=== PATIENT | female | born 1950 | race Caucasian/White ===

== ENCOUNTER 2017-08-17 10:11 | Outpatient (CLI) | payer MEDICARE | END 2017-08-17 10:12 | disposition home or self-care (01) | LOC: BICMAMMO 10:11 | PROVIDERS: ATTEND Family Medicine | DX: Z12.31 Encounter for screening mammogram for malignant neoplasm of breast (principal); R92.1 Mammographic calcification found on diagnostic imaging of breast | CPT/HCPCS: 77063; 77067 ==

== ENCOUNTER 2020-05-20 15:37 | Outpatient (CLI) | payer MEDICARE ==
--- NOTE | 2020-05-20 16:35 | RAD ---
CHEST TWO VIEW: 05/20/20 HISTORY: Shortness of breath. COMPARISON: Chest radiograph 2006. FINDINGS: There is likely interposition of the bowel between the right hemidiaphragm and the liver, much less l ikely intraperitoneal gas. The heart size is enlarged. Pulmonary arteries are distended. Low grade pu lmonary venous congestion. IMPRESSION: 1. Cardiomegaly with mild pulmonary venous congestion. 2. Likely interposition of bowel between the right hemidiaphragm and the liver, much less likely free intraperitoneal gas. Clinical correlation advised. POS: [facility]
== END 2020-05-20 15:38 | disposition home or self-care (01) ==
LOC: BICRAD 15:37
PROVIDERS: ATTEND Family Medicine
DX: R06.02 Shortness of breath (principal); R06.01 Orthopnea; R63.5 Abnormal weight gain; I51.7 Cardiomegaly; I87.8 Other specified disorders of veins
CPT/HCPCS: 71046; 82024; 82533; 83880; 84443

== ENCOUNTER 2020-06-01 10:37 | Inpatient (IN) | payer MEDICARE ==
[2020-06-01] MEDS ORDERED: Digoxin 0.5 MG/2 ML AMP ONE (11:15)
[2020-06-01] MEDS ORDERED: Aspirin Chewable 81 MG TAB ONE (11:15)
[2020-06-01] MEDS ORDERED: Magnesium 2 GM/50 ML BAG (IN WATER) ONE (11:15)
[2020-06-01] MEDS ORDERED: Furosemide 40 MG/4 ML VIAL ONE (11:15)
[2020-06-01] MEDS ORDERED: Diltiazem 125 MG/25 ML ONE (11:15)
[2020-06-01 11:50] LABS: #Basophils 0.1 thou/uL (0.0-0.2); #Eosinphils 0.1 thou/uL (0.0-0.7); #Lymphocytes 0.9 thou/uL (1.20-3.40); #Monocytes 0.5 thou/uL (0.11-0.59); #Neutrophils 3.1 thou/uL (1.40-6.50); %Basophils 1.6 % (0.0-1.0); %Eosinophils 1.4 % (0.0-10.0); %Monocytes 10.2 % (0.0-10.0); %Neutrophils 67.9 % (42.0-75.0); Hemoglobin 13.1 g/dL (12.0-16.0); Mean Corpuscular HGB CONC 33.6 g/dL (32.0-36.0); Mean Corpuscular Hemoglobin 30.8 pg (27.0-31.0); Mean Corpuscular Volume 91.9 fL (78.0-98.0); Platelet Count 191 thou/uL (130-400); Red Blood Cell (RBC) Count 4.24 mill/uL (4.20-5.40); White Blood Cell (WBC) Count 4.5 thou/uL (4.8-10.8)
[2020-06-01 12:08] LABS: ALT (SGPT) 17 U/L (8-55); AST (SGOT) 23 U/L (5-34); Albumin 3.8 g/dL (3.4-4.8); Alkaline Phosphatase 172 U/L (40-110); Anion Gap 21 mmol/L (10-20); BUN (Urea Nitrogen) 23 mg/dL (9.8-20.1); Bilirubin, Total 1.3 mg/dL (0.2-1.2); Calc. Creatinine Clearance 0 mL/min (70-130); Calcium 8.7 mg/dL (7.8-10.44); Carbon Dioxide 20 mmol/L (23-31); Chloride 96 mmol/L (98-107); Globulin 2.6 g/dL (2.4-3.5); Glucose 112 mg/dL (83-110); Lipase 50 U/L (8-78); Potassium 4.5 mmol/L (3.5-5.1); Protein, Total 6.4 g/dL (5.8-8.1); Sodium 132 mmol/L (136-145)
[2020-06-01 12:29] LABS: CKMB 3.1 ng/mL (0-6.6)
[2020-06-01] MEDS ORDERED: Enoxaparin Sodium 100 MG/ML SYRINGE ONE (12:37)
[2020-06-01] MEDS ORDERED: Metoprolol Tartrate 5 MG/5 ML VIAL IVP PRN (14:06)
[2020-06-01 15:32] VITALS: BMI 37.8
[2020-06-01 18:35] LABS: Troponin I 0.129 ng/mL (< 0.028)
[2020-06-02 05:09] LABS: #Basophils 0.1 thou/uL (0.0-0.2); #Eosinphils 0.2 thou/uL (0.0-0.7); #Lymphocytes 1.1 thou/uL (1.20-3.40); #Monocytes 0.5 thou/uL (0.11-0.59); #Neutrophils 1.8 thou/uL (1.40-6.50); %Eosinophils 5.6 % (0.0-10.0); %Lymphocytes 30.1 % (21.0-51.0); %Monocytes 12.8 % (0.0-10.0); %Neutrophils 49.5 % (42.0-75.0); Hemoglobin 12.4 g/dL (12.0-16.0); Mean Corpuscular HGB CONC 32.8 g/dL (32.0-36.0); Mean Corpuscular Hemoglobin 30.2 pg (27.0-31.0); Mean Corpuscular Volume 91.9 fL (78.0-98.0); Platelet Count 164 thou/uL (130-400); RBC Distribution Width 13.1 % (11.5-14.5); Red Blood Cell (RBC) Count 4.09 mill/uL (4.20-5.40); White Blood Cell (WBC) Count 3.7 thou/uL (4.8-10.8)
[2020-06-02 05:20] LABS: Anion Gap 16 mmol/L (10-20); BUN (Urea Nitrogen) 21 mg/dL (9.8-20.1); Calc. Creatinine Clearance 52 mL/min (70-130); Calcium 8.7 mg/dL (7.8-10.44); Carbon Dioxide 23 mmol/L (23-31); Chloride 97 mmol/L (98-107); Glucose 80 mg/dL (83-110); Potassium 4.1 mmol/L (3.5-5.1); Sodium 132 mmol/L (136-145)
[2020-06-02 05:45] LABS: Free T4 (Free Thyroxine) 0.87 ng/dL (0.70-1.48); Thyroid Stimulating Hormone 10.8835 uIU/mL (0.35-4.94)
[2020-06-02] MEDS ORDERED: Non-Formulary Item 1 EACH (Cholecalciferol (Vitamin D3) [Vitamin D] 1000 UNIT Capsule) PO SCH (09:00)
[2020-06-02] MEDS ORDERED: Furosemide 20 MG TAB PO SCH (09:00)
[2020-06-02] MEDS ORDERED: Non-Formulary Item 1 EACH (Irbesartan [Irbesartan] 300 MG Tablet) PO SCH (09:00)
[2020-06-02] MEDS: Aspirin 81 mg Enteric Coated Tablet PO SCH (09:58)
[2020-06-02] MEDS: Atorvastatin Calcium 10 MG TAB PO SCH (09:58)
[2020-06-02] MEDS: Cholecalciferol 1,000 UNITS (25 MCG) TAB PO SCH (09:59)
[2020-06-02] MEDS: Furosemide 40 MG/4 ML VIAL SLOW IVP SCH (10:11)
[2020-06-02] MEDS: Losartan 25 MG TAB PO SCH (10:12)
[2020-06-02] MEDS ORDERED: Communication Order-Pharmacy FS SCH (13:00)
[2020-06-02] MEDS ORDERED: Enoxaparin Sodium 30 MG/0.3 ML SYRINGE SC SCH (13:00)
[2020-06-02] MEDS ORDERED: Enoxaparin Sodium 100 MG/ML SYRINGE SC SCH (14:00)
[2020-06-02 23:47] LABS: SARS-CoV-2 PCR by NAA Not Detected (NotDetected)
[2020-06-03 04:59] LABS: Anion Gap 16 mmol/L (10-20); BUN (Urea Nitrogen) 17 mg/dL (9.8-20.1); Calc. Creatinine Clearance 56 mL/min (70-130); Calcium 8.7 mg/dL (7.8-10.44); Carbon Dioxide 25 mmol/L (23-31); Chloride 95 mmol/L (98-107); Glucose 88 mg/dL (83-110); Sodium 132 mmol/L (136-145)
[2020-06-03] MEDS: Atorvastatin Calcium 10 MG TAB PO SCH (05:49)
[2020-06-03] MEDS: Cholecalciferol 1,000 UNITS (25 MCG) TAB PO SCH (05:49)
[2020-06-03] MEDS: Losartan 25 MG TAB PO SCH (05:50)
[2020-06-03] MEDS: Aspirin 81 mg Enteric Coated Tablet PO SCH (05:50)
[2020-06-03] MEDS ORDERED: Sodium Chloride 0.9% 1,000 ML IV SCH ×2 (06:00→07:59)
[2020-06-03] MEDS ORDERED: Heparin 10,000 UNITS/ 10 ML VIAL ONE (06:37)
[2020-06-03] MEDS ORDERED: Midazolam HCl 2 mg/2 ml Vial ONE (07:18)
[2020-06-03] MEDS ORDERED: Fentanyl 100 MCG/2 ML VIAL ONE (07:18)
[2020-06-03] MEDS ORDERED: Protamine Sulfate 50 MG/5 ML VIAL ONE (07:37)
[2020-06-03] MEDS ORDERED: Sodium Chloride 0.9% 200 ML IV PRN (07:58)
[2020-06-03] MEDS ORDERED: Acetaminophen/Codeine 30-300mg Tablet PO PRN ×2 (07:58)
[2020-06-03] MEDS ORDERED: Nitroglycerin 0.4 MG TAB (25 Tab Bottle) SL PRN (07:58)
[2020-06-03] MEDS: Carvedilol 3.125 MG TAB PO SCH ×2 (10:00→18:11)
[2020-06-03] MEDS: Furosemide 40 MG/4 ML VIAL SLOW IVP SCH (10:00)
[2020-06-03] MEDS ORDERED: Iopamidol 370 76% 100 ML VIAL ONE (10:39)
[2020-06-03 15:30] LABS: Hemoglobin 11.6 g/dL (12.0-16.0)
[2020-06-04 02:05] LABS: Anion Gap 15 mmol/L (10-20); BUN (Urea Nitrogen) 15 mg/dL (9.8-20.1); Calc. Creatinine Clearance 64 mL/min (70-130); Calcium 8.4 mg/dL (7.8-10.44); Carbon Dioxide 25 mmol/L (23-31); Cardiac Risk 2.2 (Less than 4.5); Chloride 96 mmol/L (98-107); Cholesterol 98 mg/dl (< 200 Desired); Glucose 104 mg/dL (83-110); HDL Cholesterol 45 mg/dL (>60 Neg Risk); LDL Cholesterol, Calculated 39 mg/dL; Sodium 132 mmol/L (136-145); Triglycerides 71 mg/dL (Less than 150)
[2020-06-04 04:36] LABS: #Eosinphils 0.2 thou/uL (0.0-0.7); #Lymphocytes 0.8 thou/uL (1.20-3.40); #Monocytes 0.4 thou/uL (0.11-0.59); %Basophils 1.4 % (0.0-1.0); %Eosinophils 6.9 % (0.0-10.0); %Lymphocytes 23.7 % (21.0-51.0); %Monocytes 10.5 % (0.0-10.0); %Neutrophils 57.5 % (42.0-75.0); Hemoglobin 11.1 g/dL (12.0-16.0); Mean Corpuscular HGB CONC 32.2 g/dL (32.0-36.0); Mean Corpuscular Hemoglobin 29.6 pg (27.0-31.0); Mean Corpuscular Volume 91.7 fL (78.0-98.0); Mean Platelet Volume 8.3 fL (7.4-10.4); Platelet Count 190 thou/uL (130-400); Red Blood Cell (RBC) Count 3.74 mill/uL (4.20-5.40); White Blood Cell (WBC) Count 3.5 thou/uL (4.8-10.8)
[2020-06-04] MEDS: Cholecalciferol 1,000 UNITS (25 MCG) TAB PO SCH (09:12)
[2020-06-04] MEDS: Carvedilol 3.125 MG TAB PO SCH ×2 (09:12→17:16)
[2020-06-04] MEDS: Atorvastatin Calcium 10 MG TAB PO SCH (09:12)
[2020-06-04] MEDS: Aspirin 81 mg Enteric Coated Tablet PO SCH (09:16)
[2020-06-04] MEDS: Furosemide 40 MG/4 ML VIAL SLOW IVP SCH (09:16)
[2020-06-04] MEDS: Amiodarone 200 MG TAB PO SCH (20:41)
[2020-06-04] MEDS: Apixaban 5 MG TAB PO SCH (20:41)
[2020-06-05 04:15] LABS: #Eosinphils 0.2 thou/uL (0.0-0.7); #Lymphocytes 0.8 thou/uL (1.20-3.40); #Monocytes 0.4 thou/uL (0.11-0.59); %Basophils 1.2 % (0.0-1.0); %Eosinophils 6.4 % (0.0-10.0); %Lymphocytes 23.2 % (21.0-51.0); %Monocytes 10.5 % (0.0-10.0); %Neutrophils 58.7 % (42.0-75.0); Hemoglobin 11.2 g/dL (12.0-16.0); Mean Corpuscular HGB CONC 32.3 g/dL (32.0-36.0); Mean Corpuscular Hemoglobin 29.4 pg (27.0-31.0); Mean Platelet Volume 7.9 fL (7.4-10.4); Platelet Count 185 thou/uL (130-400); RBC Distribution Width 13.2 % (11.5-14.5); Red Blood Cell (RBC) Count 3.81 mill/uL (4.20-5.40); White Blood Cell (WBC) Count 3.4 thou/uL (4.8-10.8)
[2020-06-05 04:35] LABS: Anion Gap 14 mmol/L (10-20); BUN (Urea Nitrogen) 13 mg/dL (9.8-20.1); Calc. Creatinine Clearance 68 mL/min (70-130); Calcium 8.5 mg/dL (7.8-10.44); Carbon Dioxide 28 mmol/L (23-31); Chloride 95 mmol/L (98-107); Glucose 91 mg/dL (83-110); Potassium 3.8 mmol/L (3.5-5.1); Sodium 133 mmol/L (136-145)
[2020-06-05] MEDS: Furosemide 40 MG/4 ML VIAL SLOW IVP SCH (09:32)
[2020-06-05] MEDS: Apixaban 5 MG TAB PO SCH ×2 (09:32→20:31)
[2020-06-05] MEDS: Amiodarone 200 MG TAB PO SCH ×3 (09:32→20:31)
[2020-06-05] MEDS: Carvedilol 3.125 MG TAB PO SCH ×2 (09:32→16:06)
[2020-06-05] MEDS: Aspirin 81 mg Enteric Coated Tablet PO SCH (09:33)
[2020-06-05] MEDS: Atorvastatin Calcium 10 MG TAB PO SCH (09:33)
[2020-06-05] MEDS: Cholecalciferol 1,000 UNITS (25 MCG) TAB PO SCH (09:33)
[2020-06-06 05:04] LABS: #Eosinphils 0.3 thou/uL (0.0-0.7); #Lymphocytes 0.9 thou/uL (1.20-3.40); #Monocytes 0.4 thou/uL (0.11-0.59); #Neutrophils 1.8 thou/uL (1.40-6.50); %Basophils 1.3 % (0.0-1.0); %Eosinophils 8.1 % (0.0-10.0); %Lymphocytes 25.2 % (21.0-51.0); %Monocytes 11.2 % (0.0-10.0); %Neutrophils 54.1 % (42.0-75.0); Hemoglobin 10.7 g/dL (12.0-16.0); Mean Corpuscular HGB CONC 31.8 g/dL (32.0-36.0); Mean Corpuscular Hemoglobin 28.9 pg (27.0-31.0); Mean Corpuscular Volume 90.7 fL (78.0-98.0); Mean Platelet Volume 7.9 fL (7.4-10.4); Platelet Count 182 thou/uL (130-400); RBC Distribution Width 13.4 % (11.5-14.5); White Blood Cell (WBC) Count 3.4 thou/uL (4.8-10.8)
[2020-06-06 05:28] LABS: Anion Gap 16 mmol/L (10-20); BUN (Urea Nitrogen) 14 mg/dL (9.8-20.1); Calc. Creatinine Clearance 70 mL/min (70-130); Calcium 8.6 mg/dL (7.8-10.44); Carbon Dioxide 27 mmol/L (23-31); Chloride 95 mmol/L (98-107); Glucose 88 mg/dL (83-110); Potassium 3.8 mmol/L (3.5-5.1); Sodium 134 mmol/L (136-145)
[2020-06-06] MEDS ORDERED: PROPOFOL 20 ML ONE (08:39)
[2020-06-06] MEDS ORDERED: PHENYLEPHRINE-NS 100 MCG/ML 10 ML SYRINGE ONE (09:23)
[2020-06-06] MEDS ORDERED: PROPOFOL 200 MG/20 ML VIAL ONE (09:23)
[2020-06-06] MEDS: Furosemide 40 MG/4 ML VIAL SLOW IVP SCH (10:25)
[2020-06-06] MEDS: Cholecalciferol 1,000 UNITS (25 MCG) TAB PO SCH (10:25)
[2020-06-06] MEDS: Amiodarone 200 MG TAB PO SCH ×2 (10:25→14:41)
[2020-06-06] MEDS: Atorvastatin Calcium 10 MG TAB PO SCH (10:25)
[2020-06-06] MEDS: Aspirin 81 mg Enteric Coated Tablet PO SCH (10:26)
[2020-06-06] MEDS: Apixaban 5 MG TAB PO SCH (10:26)
[2020-06-06] MEDS: Carvedilol 3.125 MG TAB PO SCH ×2 (10:27→19:15)
[2020-06-06 16:49] VITALS: BP 134/79; TEMP 98.9
== END 2020-06-06 19:29 | disposition home health service (06) | DRG 286 ==
LOC: ERS 10:37 → 2NO 12:35
PROVIDERS: ADMIT Internal Medicine; ATTEND Internal Medicine
PROC: B2111ZZ Fluoroscopy of Multiple Coronary Arteries using Low Osmolar Contrast (ICD-10-PCS; principal; 2020-06-03)
PROC: B24BZZ4 Ultrasonography of Heart with Aorta, Transesophageal (ICD-10-PCS; 2020-06-06)
DX: I13.0 Hypertensive heart and chronic kidney disease with heart failure and stage 1 through stage 4 chronic kidney disease, or unspecified chronic kidney disease (principal); Z20.822 Contact with and (suspected) exposure to COVID-19; I50.23 Acute on chronic systolic (congestive) heart failure; E87.1 Hypo-osmolality and hyponatremia; N17.9 Acute kidney failure, unspecified; I23.6 Thrombosis of atrium, auricular appendage, and ventricle as current complications following acute myocardial infarction; L76.32 Postprocedural hematoma of skin and subcutaneous tissue following other procedure; E78.5 Hyperlipidemia, unspecified; E78.00 Pure hypercholesterolemia, unspecified; Z96.653 Presence of artificial knee joint, bilateral; I48.91 Unspecified atrial fibrillation; N18.30 Chronic kidney disease, stage 3 unspecified; I42.9 Cardiomyopathy, unspecified; E66.9 Obesity, unspecified; I25.10 Atherosclerotic heart disease of native coronary artery without angina pectoris; I08.1 Rheumatic disorders of both mitral and tricuspid valves; Y84.8 Other medical procedures as the cause of abnormal reaction of the patient, or of later complication, without mention of misadventure at the time of the procedure; Z98.84 Bariatric surgery status; Z90.710 Acquired absence of both cervix and uterus; Z88.5 Allergy status to narcotic agent; Z88.8 Allergy status to other drugs, medicaments and biological substances; Z79.899 Other long term (current) drug therapy; Z87.891 Personal history of nicotine dependence; Z68.35 Body mass index [BMI] 35.0-35.9, adult
CPT/HCPCS: 36415; 71045; 74176; 76942; 80048; 80053; 80061; 82553; 83690; 83735; 83880; 84439; 84443; 84484; 85014; 85018; 85025; 85347; 85379; 87635; 92960; 93005; 93306; 93312; 93454; 93798; 93923; 93970; 96372; 96374; 96375; 99152; J1160; J1644; J1650; J1940; J2250; J2704; J2720; J3010; J3475; Q9967; U0003; U0005

== ENCOUNTER 2020-07-08 09:46 | Outpatient (CLI) | payer MEDICARE ==
[2020-07-08 10:48] LABS: #Basophils 0.1 10x3/uL (0.0-0.2); #Eosinphils 0.2 10x3/uL (0.0-0.5); #Monocytes 0.4 10x3/uL (0.0-1.1); #Neutrophils 2.2 10x3/uL (1.5-8.4); %Basophils 1.6 % (0.0-2.0); %Eosinophils 5.2 % (0.0-6.0); %Lymphocytes 27.6 % (18.0-47.0); %Monocytes 9.8 % (0.0-10.0); %Neutrophils 55.5 % (40.0-75.0); Hemoglobin 11.7 g/dL (12.0-15.5); Mean Corpuscular HGB CONC 32.1 g/dL (32.0-36.0); Mean Corpuscular Hemoglobin 28.7 pg (27.0-33.0); Mean Corpuscular Volume 89.7 fl (81.6-98.3); Mean Platelet Volume 10.8 fl (7.4-10.4); Platelet Count 179 10x3/uL (150-450); Red Blood Cell (RBC) Count 4.07 10x6/uL (3.90-5.03); White Blood Cell (WBC) Count 3.9 10x3/uL (3.5-10.5)
[2020-07-08 11:13] LABS: Anion Gap 15 mmol/L (10-20); BUN (Urea Nitrogen) 23 mg/dL (9.8-20.1); Calc. Creatinine Clearance 0 mL/min (70-130); Calcium 8.9 mg/dL (7.8-10.44); Carbon Dioxide 25 mmol/L (23-31); Chloride 98 mmol/L (98-107); Glucose 97 mg/dL (83-110); Sodium 134 mmol/L (136-145)
[2020-07-08 20:01] LABS: SARS-CoV-2 PCR by NAA Not Detected (NotDetected)
== END 2020-07-08 09:47 | disposition home or self-care (01) ==
LOC: LABBT 09:46
PROVIDERS: ATTEND Internal Medicine Cardiovascular Disease
DX: Z01.812 Encounter for preprocedural laboratory examination (principal); Z20.822 Contact with and (suspected) exposure to COVID-19
CPT/HCPCS: 80048; 85025; U0003; U0005; 87635

== ENCOUNTER → 2020-07-11 | Day surgery (SDC) | payer MEDICARE ==
[2020-07-10 09:00] VITALS: BMI 31.7
[~2020-07-11] MED LIST: PROPOFOL 40 ML ONE
== END ==
LOC: CCL 05:57
PROVIDERS: ATTEND Internal Medicine Cardiovascular Disease
PROC: B24BZZ4 Ultrasonography of Heart with Aorta, Transesophageal (ICD-10-PCS; principal; 2020-07-11)
PROC: 5A2204Z Restoration of Cardiac Rhythm, Single (ICD-10-PCS; 2020-07-11)
DX: I42.0 Dilated cardiomyopathy (principal); I08.1 Rheumatic disorders of both mitral and tricuspid valves; I70.0 Atherosclerosis of aorta; I48.91 Unspecified atrial fibrillation; I13.0 Hypertensive heart and chronic kidney disease with heart failure and stage 1 through stage 4 chronic kidney disease, or unspecified chronic kidney disease; I50.23 Acute on chronic systolic (congestive) heart failure; N18.30 Chronic kidney disease, stage 3 unspecified; E78.5 Hyperlipidemia, unspecified; I47.2 Ventricular tachycardia; I25.10 Atherosclerotic heart disease of native coronary artery without angina pectoris; E78.00 Pure hypercholesterolemia, unspecified; M19.90 Unspecified osteoarthritis, unspecified site; E03.9 Hypothyroidism, unspecified; E66.9 Obesity, unspecified; Z68.31 Body mass index [BMI] 31.0-31.9, adult; Z87.891 Personal history of nicotine dependence; Z79.01 Long term (current) use of anticoagulants; Z79.82 Long term (current) use of aspirin; Z79.899 Other long term (current) drug therapy; Z88.5 Allergy status to narcotic agent; Z98.84 Bariatric surgery status
CPT/HCPCS: 92960; 93005; 93010; 93312; J2704

== ENCOUNTER 2021-02-25 08:12 | Outpatient (CLI) | payer MEDICARE | END 2021-02-25 08:13 | disposition home or self-care (01) | LOC: BICRAD 08:12 | PROVIDERS: ATTEND Internal Medicine Cardiovascular Disease | DX: Z92.29 Personal history of other drug therapy (principal) | CPT/HCPCS: 36415; 71046; 80053; 80061; 81001; 82306; 84443 ==

== ENCOUNTER 2021-03-17 23:45 | Inpatient (IN) | payer OTHER, MEDICARE ==
[2021-03-18 00:12] LABS: #Basophils 0.1 thou/uL (0.0-0.2); #Eosinphils 0.1 thou/uL (0.0-0.7); #Lymphocytes 1.8 thou/uL (1.20-3.40); #Monocytes 0.5 thou/uL (0.11-0.59); #Neutrophils 3.6 thou/uL (1.40-6.50); %Eosinophils 2.4 % (0.0-10.0); %Lymphocytes 29.4 % (21.0-51.0); %Monocytes 8.1 % (0.0-10.0); %Neutrophils 59.1 % (42.0-75.0); Hemoglobin 11.8 g/dL (12.0-16.0); Mean Corpuscular HGB CONC 35.1 g/dL (32.0-36.0); Mean Corpuscular Hemoglobin 33.2 pg (27.0-31.0); Mean Corpuscular Volume 94.6 fL (78.0-98.0); Mean Platelet Volume 7.3 fL (7.4-10.4); Platelet Count 201 thou/uL (130-400); RBC Distribution Width 12.8 % (11.5-14.5); Red Blood Cell (RBC) Count 3.55 mill/uL (4.20-5.40); White Blood Cell (WBC) Count 6.1 thou/uL (4.8-10.8)
[2021-03-18 00:35] LABS: ALT (SGPT) 26 U/L (8-55); AST (SGOT) 35 U/L (5-34); Acetaminophen Less than 6.0 mcg/mL (10.0-30.0); Albumin 4.3 g/dL (3.4-4.8); Alcohol 154 mg/dL (Less than 10); Alkaline Phosphatase 82 U/L (40-110); Anion Gap 15 mmol/L (10-20); BUN (Urea Nitrogen) 26 mg/dL (9.8-20.1); Bilirubin, Total 0.7 mg/dL (0.2-1.2); Calc. Creatinine Clearance 0 mL/min (70-130); Calcium 8.6 mg/dL (7.8-10.44); Carbon Dioxide 20 mmol/L (23-31); Chloride 90 mmol/L (98-107); Globulin 3.2 g/dL (2.4-3.5); Glucose 105 mg/dL (83-110); Lipase 61 U/L (8-78); Potassium 4.5 mmol/L (3.5-5.1); Protein, Total 7.5 g/dL (5.8-8.1); Salicylate Less than 8.0 mg/dL (15.0-30.0); Sodium 120 mmol/L (136-145)
[2021-03-18 01:40] LABS: Bacteria/HPF 4+ HPF (None Seen); Bilirubin Negative (Negative); Blood, Urine Trace (Negative); Clarity Clear (Clear); Glucose, Urine (Dipstick) Normal (Negative); Ketone, Urine Negative (Negative); Leukocyte 250 Leu/uL (Negative); Nitrite Negative (Negative); Protein, Urine (Dipstick) 20 mg/dL (Neg-Trace); RBC/HPF 0-3 HPF (0-3); Specific Gravity, Urine 1.005 (1.002-1.036); Squamous Epithelial None Seen HPF (0-3); Urobilinogen Normal mg/dL (Less than 2); WBC/HPF Greater than 50 HPF (0-3)
[2021-03-18 01:47] LABS: Amphetamine Not Detected (NotDetected); Barbiturates Screen Not Detected (NotDetected); Benzodiazepine Screen Not Detected (NotDetected); Cocaine Metabolite Screen Not Detected (NotDetected); Methadone Not Detected (NotDetected); Methamphetamine Not Detected (NotDetected); Opiate Screen Not Detected (NotDetected); Oxycodone Screen Not Detected (NotDetected); Phencyclidine (PCP) Not Detected (NotDetected); THC/Cannabinoid Screen Not Detected (NotDetected); Tricyclic Screen Not Detected (NotDetected)
[2021-03-18] MEDS ORDERED: Morphine 4 MG/ML VIAL ONE (01:54)
[2021-03-18] MEDS ORDERED: Ondansetron PF 4 MG/2 ML Vial ONE (02:26)
[2021-03-18] MEDS ORDERED: Dextrose 50% Abboject 50 ML SYRINGE SLOW IVP PRN (06:26)
[2021-03-18] MEDS ORDERED: Dextrose 5% in Water 1,000 ML IV PRN (06:26)
[2021-03-18] MEDS ORDERED: Ondansetron ODT 4 MG TAB PO PRN (06:26)
[2021-03-18] MEDS ORDERED: Ciprofloxacin 500 MG TAB PO SCH (06:30)
[2021-03-18] MEDS ORDERED: Ciprofloxacin 500 MG TAB ONE (07:57)
[2021-03-18] MEDS ORDERED: Furosemide 40 MG TAB ONE (07:57)
[2021-03-18] MEDS ORDERED: traMADol HCl 50 MG TAB ONE (08:03)
[2021-03-18] MEDS: traMADol HCl 50 MG TAB PO PRN ×2 (08:06→16:04)
[2021-03-18] MEDS: Furosemide 40 MG TAB PO SCH (08:07)
[2021-03-18] MEDS ORDERED: Famotidine 20 MG TAB PO SCH (09:00)
[2021-03-18] MEDS ORDERED: Dexamethasone 4 MG in Sodium Chloride 0.9% 50 ML IVPB SCH (09:00)
[2021-03-18] MEDS ORDERED: Famotidine 20 MG TAB ONE (09:43)
[2021-03-18] MEDS ORDERED: Iopamidol 370 76% 100 ML VIAL ONE (11:12)
[2021-03-18] MEDS: Sodium Chloride 1 GM TAB PO SCH ×2 (11:24→20:17)
[2021-03-18] MEDS: Carvedilol 3.125 MG TAB PO SCH ×2 (11:25→17:59)
[2021-03-18] MEDS: Levothyroxine Sodium 75 MCG TAB PO SCH (11:26)
[2021-03-18] MEDS: Atorvastatin Calcium 10 MG TAB PO SCH (11:26)
[2021-03-18] MEDS: Amiodarone 200 MG TAB PO SCH ×2 (11:27→20:16)
[2021-03-18] MEDS: Scopolamine 1.5 mg/72 hour Patch TD SCH (11:29)
[2021-03-18] MEDS: Acetaminophen 500 MG TAB PO SCH ×2 (13:16→17:59)
[2021-03-18] MEDS: Dexamethasone 4 mg/ml Vial SLOW IVP SCH ×2 (13:17→22:35)
[2021-03-18] MEDS: Ondansetron PF 4 MG/2 ML Vial IVP PRN (13:17)
[2021-03-18 15:32] LABS: SARS-CoV-2 PCR by NAA Not Detected (NotDetected)
[2021-03-18] MEDS: Ciprofloxacin 500 MG TAB PO SCH (20:16)
[2021-03-19] MEDS: Acetaminophen 500 MG TAB PO SCH ×2 (00:24→05:03)
[2021-03-19] MEDS: traMADol HCl 50 MG TAB PO PRN (00:25)
[2021-03-19] MEDS: Ciprofloxacin 500 MG TAB PO SCH ×2 (05:03→20:40)
[2021-03-19] MEDS: Dexamethasone 4 mg/ml Vial SLOW IVP SCH (05:04)
[2021-03-19] MEDS: Furosemide 40 MG TAB PO SCH (05:04)
[2021-03-19 05:46] LABS: Anion Gap 13 mmol/L (10-20); BUN (Urea Nitrogen) 24 mg/dL (9.8-20.1); Calc. Creatinine Clearance 46 mL/min (70-130); Calcium 8.6 mg/dL (7.8-10.44); Carbon Dioxide 22 mmol/L (23-31); Chloride 95 mmol/L (98-107); Glucose 139 mg/dL (83-110); Phosphorus 3.7 mg/dL (2.3-4.7); Potassium 5.1 mmol/L (3.5-5.1); Sodium 125 mmol/L (136-145)
[2021-03-19] MEDS: Amiodarone 200 MG TAB PO SCH ×2 (08:51→20:41)
[2021-03-19] MEDS: Carvedilol 3.125 MG TAB PO SCH ×2 (08:51→16:23)
[2021-03-19] MEDS: Levothyroxine Sodium 75 MCG TAB PO SCH (08:52)
[2021-03-19] MEDS: Atorvastatin Calcium 10 MG TAB PO SCH (08:52)
[2021-03-19] MEDS: Sodium Chloride 1 GM TAB PO SCH ×2 (08:58→20:41)
[2021-03-19] MEDS ORDERED: Famotidine 20 MG TAB PO SCH (09:00)
[2021-03-19] MEDS: Acetaminophen/Codeine 30-300mg Tablet PO SCH ×3 (12:39→20:40)
[2021-03-19] MEDS: Acetaminophen 325 MG TAB PO SCH ×3 (12:43→23:48)
[2021-03-19] MEDS ORDERED: Sodium Chloride 0.9% 500 ML IV SCH (13:30)
[2021-03-20] MEDS: Acetaminophen/Codeine 30-300mg Tablet PO SCH ×4 (03:04→20:21)
[2021-03-20] MEDS: Ciprofloxacin 500 MG TAB PO SCH (05:57)
[2021-03-20] MEDS: Acetaminophen 325 MG TAB PO SCH ×3 (05:57→18:22)
[2021-03-20 07:35] LABS: Anion Gap 12 mmol/L (10-20); BUN (Urea Nitrogen) 30 mg/dL (9.8-20.1); Calc. Creatinine Clearance 43 mL/min (70-130); Calcium 9.1 mg/dL (7.8-10.44); Carbon Dioxide 25 mmol/L (23-31); Chloride 95 mmol/L (98-107); Glucose 106 mg/dL (83-110); Magnesium 2.3 mg/dL (1.6-2.6); Phosphorus 3.3 mg/dL (2.3-4.7); Potassium 4.9 mmol/L (3.5-5.1); Sodium 127 mmol/L (136-145)
[2021-03-20] MEDS: Sodium Chloride 1 GM TAB PO SCH ×2 (09:10→20:21)
[2021-03-20] MEDS: Amiodarone 200 MG TAB PO SCH ×2 (09:10→20:21)
[2021-03-20] MEDS: Carvedilol 3.125 MG TAB PO SCH ×2 (09:10→18:21)
[2021-03-20] MEDS: Levothyroxine Sodium 75 MCG TAB PO SCH (09:10)
[2021-03-20] MEDS: Atorvastatin Calcium 10 MG TAB PO SCH (09:10)
[2021-03-20] MEDS ORDERED: Sodium Chloride 0.9% 1,000 ML IV SCH ×2 (10:00→18:11)
[2021-03-20] MEDS: cefTRIAXone\\ROCEPHIN 1 GM in Sodium Chloride 0.9% 100 ML IVPB SCH (11:29)
[2021-03-20] MEDS: Sodium Chloride 0.9% 1,000 ML IV SCH ×3 (15:00→18:25)
[2021-03-20 17:45] LABS: Anion Gap 15 mmol/L (10-20); BUN (Urea Nitrogen) 29 mg/dL (9.8-20.1); Calc. Creatinine Clearance 44 mL/min (70-130); Calcium 8.9 mg/dL (7.8-10.44); Carbon Dioxide 23 mmol/L (23-31); Chloride 97 mmol/L (98-107); Glucose 104 mg/dL (83-110); Potassium 4.6 mmol/L (3.5-5.1); Sodium 130 mmol/L (136-145)
[2021-03-20] MEDS ORDERED: Furosemide 20 MG/2 ML VIAL SLOW IVP SCH (18:15)
[2021-03-20] MEDS ORDERED: hydrALAZINE 20 MG/ML VIAL SLOW IVP PRN (21:05)
[2021-03-21] MEDS: Acetaminophen 325 MG TAB PO SCH ×3 (00:05→11:59)
[2021-03-21] MEDS: Acetaminophen/Codeine 30-300mg Tablet PO SCH ×3 (03:34→15:39)
[2021-03-21] MEDS: Sodium Chloride 0.9% 1,000 ML IV SCH ×2 (03:34→10:52)
[2021-03-21 06:39] LABS: Anion Gap 9 mmol/L (10-20); BUN (Urea Nitrogen) 27 mg/dL (9.8-20.1); Calc. Creatinine Clearance 46 mL/min (70-130); Calcium 8.1 mg/dL (7.8-10.44); Carbon Dioxide 24 mmol/L (23-31); Chloride 103 mmol/L (98-107); Glucose 86 mg/dL (83-110); Phosphorus 3.5 mg/dL (2.3-4.7); Potassium 4.3 mmol/L (3.5-5.1); Sodium 132 mmol/L (136-145)
[2021-03-21] MEDS ORDERED: Furosemide 40 MG TAB PO SCH (07:30)
[2021-03-21] MEDS: Sodium Chloride 1 GM TAB PO SCH (08:57)
[2021-03-21] MEDS: Amiodarone 200 MG TAB PO SCH (08:57)
[2021-03-21] MEDS: Levothyroxine Sodium 75 MCG TAB PO SCH (08:57)
[2021-03-21] MEDS: Atorvastatin Calcium 10 MG TAB PO SCH (08:57)
[2021-03-21] MEDS: Carvedilol 3.125 MG TAB PO SCH (08:57)
[2021-03-21] MEDS: Scopolamine 1.5 mg/72 hour Patch TD SCH (08:59)
[2021-03-21] MEDS: cefTRIAXone\\ROCEPHIN 1 GM in Sodium Chloride 0.9% 100 ML IVPB SCH (10:07)
[2021-03-21] MEDS: Ondansetron PF 4 MG/2 ML Vial IVP PRN (10:11)
[2021-03-21] MEDS ORDERED: Senokot 8.6 MG TAB PO PRN (10:20)
[2021-03-21] MEDS ORDERED: traMADol HCl 50 MG TAB PO SCH (10:30)
[2021-03-21] MEDS ORDERED: Cyclobenzaprine 10 MG TAB PO PRN (11:10)
[2021-03-21 12:10] VITALS: BP 155/69; TEMP 97.5
== END 2021-03-21 16:10 | disposition home or self-care (01) | DRG 552 ==
LOC: ERS 23:45 → ERHOLD 03-18 06:36 → SJJU 03-18 12:16 → OBSVTOIN 03-19 14:59
PROVIDERS: ADMIT Specialist; ATTEND Specialist
DX: S12.041A Nondisplaced lateral mass fracture of first cervical vertebra, initial encounter for closed fracture (principal); N17.9 Acute kidney failure, unspecified; N39.0 Urinary tract infection, site not specified; E87.0 Hyperosmolality and hypernatremia; I50.22 Chronic systolic (congestive) heart failure; I42.9 Cardiomyopathy, unspecified; E87.1 Hypo-osmolality and hyponatremia; I13.0 Hypertensive heart and chronic kidney disease with heart failure and stage 1 through stage 4 chronic kidney disease, or unspecified chronic kidney disease; S12.191A Other nondisplaced fracture of second cervical vertebra, initial encounter for closed fracture; Z20.822 Contact with and (suspected) exposure to COVID-19; E03.9 Hypothyroidism, unspecified; S00.83XA Contusion of other part of head, initial encounter; V47.5XXA Car driver injured in collision with fixed or stationary object in traffic accident, initial encounter; F10.129 Alcohol abuse with intoxication, unspecified; D64.9 Anemia, unspecified; I48.91 Unspecified atrial fibrillation; E78.00 Pure hypercholesterolemia, unspecified; I25.10 Atherosclerotic heart disease of native coronary artery without angina pectoris; N18.30 Chronic kidney disease, stage 3 unspecified; Z96.653 Presence of artificial knee joint, bilateral; E78.5 Hyperlipidemia, unspecified; Z90.710 Acquired absence of both cervix and uterus; Z98.84 Bariatric surgery status; Z79.899 Other long term (current) drug therapy; Z79.01 Long term (current) use of anticoagulants; Z79.890 Hormone replacement therapy; Z79.82 Long term (current) use of aspirin; Z95.810 Presence of automatic (implantable) cardiac defibrillator; Z88.8 Allergy status to other drugs, medicaments and biological substances
CPT/HCPCS: 36415; 70450; 70486; 71260; 72125; 74177; 80048; 80053; 80306; 80307; 81003; 81015; 83690; 83735; 84100; 84484; 85025; 93005; 96374; 96375; 96376; G0378; G0390; J0696; J1100; J1940; J2270; J2405; J3490; J7030; J7050; P9045; Q9967; U0003; U0005

== ENCOUNTER 2021-03-31 11:12 | Inpatient (IN) | payer OTHER, MEDICARE ==
[2021-03-31 12:01] LABS: #Lymphocytes 0.6 thou/uL (1.20-3.40); #Monocytes 0.4 thou/uL (0.11-0.59); #Neutrophils 2.6 thou/uL (1.40-6.50); %Eosinophils 0.4 % (0.0-10.0); %Lymphocytes 15.7 % (21.0-51.0); %Monocytes 11.2 % (0.0-10.0); %Neutrophils 72.8 % (42.0-75.0); Hemoglobin 8.9 g/dL (12.0-16.0); Mean Corpuscular HGB CONC 35.5 g/dL (32.0-36.0); Mean Corpuscular Hemoglobin 33.4 pg (27.0-31.0); Mean Corpuscular Volume 94.3 fL (78.0-98.0); Mean Platelet Volume 6.8 fL (7.4-10.4); Platelet Count 204 thou/uL (130-400); RBC Distribution Width 12.8 % (11.5-14.5); Red Blood Cell (RBC) Count 2.66 mill/uL (4.20-5.40); White Blood Cell (WBC) Count 3.6 thou/uL (4.8-10.8)
[2021-03-31 12:24] LABS: ALT (SGPT) 30 U/L (8-55); AST (SGOT) 45 U/L (5-34); Albumin 3.6 g/dL (3.4-4.8); Alkaline Phosphatase 73 U/L (40-110); Anion Gap 12 mmol/L (10-20); BUN (Urea Nitrogen) 27 mg/dL (9.8-20.1); Bilirubin, Total 1.6 mg/dL (0.2-1.2); Calc. Creatinine Clearance 0 mL/min (70-130); Calcium 8.5 mg/dL (7.8-10.44); Carbon Dioxide 27 mmol/L (23-31); Chloride 95 mmol/L (98-107); Globulin 3.3 g/dL (2.4-3.5); Glucose 119 mg/dL (83-110); Potassium 3.7 mmol/L (3.5-5.1); Protein, Total 6.9 g/dL (5.8-8.1); Sodium 130 mmol/L (136-145)
[2021-03-31 12:46] LABS: CKMB 0.7 ng/mL (0-6.6)
[2021-03-31] MEDS ORDERED: levETIRAcetam in NS 100 ML ONE (12:58)
[2021-03-31] MEDS ORDERED: Senokot S 8.6-50 MG TAB PO PRN (14:40)
[2021-03-31] MEDS ORDERED: Bisacodyl 5 MG TAB PO PRN (14:40)
[2021-03-31] MEDS ORDERED: Ondansetron PF 4 MG/2 ML Vial IVP PRN (14:40)
[2021-03-31] MEDS ORDERED: Acetaminophen 325 MG TAB PO PRN (14:40)
[2021-03-31] MEDS ORDERED: Ondansetron ODT 4 MG TAB PO PRN (14:40)
[2021-03-31] MEDS ORDERED: HYDROcodone/Acetaminophen 5/325 mg Tablet PO PRN (14:40)
[2021-03-31] MEDS ORDERED: Calcium Carbonate 500 MG ChewTAB PO PRN (14:40)
[2021-03-31] MEDS ORDERED: Cyclobenzaprine 10 MG TAB PO PRN ×2 (14:45→16:06)
[2021-03-31] MEDS ORDERED: Acetaminophen/Codeine 30-300mg Tablet PO SCH (15:00)
[2021-03-31] MEDS ORDERED: levETIRAcetam in NS 1,000 MG in Premix Bag 1 BAG IVPB SCH (15:00)
[2021-03-31 15:54] LABS: Troponin I 0.036 ng/mL (< 0.028)
[2021-03-31] MEDS: Sodium Chloride 0.9% 1,000 ML IV SCH (16:57)
[2021-03-31] MEDS: Carvedilol 3.125 MG TAB PO SCH (16:57)
[2021-03-31 17:25] VITALS: BMI 34.4
[2021-03-31] MEDS ORDERED: Acetaminophen 325 MG TAB PO SCH (18:00)
[2021-03-31 18:44] LABS: Troponin I 0.027 ng/mL (< 0.028)
[2021-03-31] MEDS: Amiodarone 200 MG TAB PO SCH (21:56)
[2021-03-31] MEDS: levETIRAcetam 500 MG TAB PO SCH (21:56)
[2021-03-31] MEDS: Apixaban 5 MG TAB PO SCH (21:56)
[2021-04-01] MEDS ORDERED: Acetaminophen 325 MG TAB PO PRN (00:32)
[2021-04-01] MEDS: Levothyroxine Sodium 75 MCG TAB PO SCH (06:34)
[2021-04-01] MEDS ORDERED: Furosemide 40 MG TAB PO SCH (07:30)
[2021-04-01 08:28] LABS: Bilirubin Negative (Negative); Blood, Urine Negative (Negative); Clarity Clear (Clear); Glucose, Urine (Dipstick) Normal (Negative); Ketone, Urine Negative (Negative); Leukocyte Negative Leu/uL (Negative); Nitrite Negative (Negative); Protein, Urine (Dipstick) 50 mg/dL (Neg-Trace); RBC/HPF 0-3 HPF (0-3); Specific Gravity, Urine 1.013 (1.002-1.036); Urobilinogen Normal mg/dL (Less than 2); WBC/HPF 0-3 HPF (0-3); pH, Urine 5.5 (5.0-9.0)
[2021-04-01 08:29] LABS: Bacteria/HPF 1+ HPF (None Seen); Urine Culture Reflex No No
[2021-04-01] MEDS ORDERED: Aspirin 81 mg Enteric Coated Tablet PO SCH (09:00)
[2021-04-01] MEDS: Sodium Chloride 0.9% 1,000 ML IV SCH ×2 (09:00→22:19)
[2021-04-01] MEDS: Apixaban 5 MG TAB PO SCH ×2 (09:03→20:26)
[2021-04-01] MEDS: Carvedilol 3.125 MG TAB PO SCH ×2 (09:03→16:27)
[2021-04-01] MEDS: Amiodarone 200 MG TAB PO SCH ×2 (09:03→20:26)
[2021-04-01] MEDS: Atorvastatin Calcium 40 MG TAB PO SCH (09:04)
[2021-04-01] MEDS: Cholecalciferol 1,000 UNITS (25 MCG) TAB PO SCH (09:04)
[2021-04-01] MEDS: levETIRAcetam 500 MG TAB PO SCH ×2 (09:04→20:25)
[2021-04-01 10:04] LABS: #Basophils 0.1 thou/uL (0.0-0.2); #Lymphocytes 0.6 thou/uL (1.20-3.40); #Monocytes 0.2 thou/uL (0.11-0.59); #Neutrophils 2.4 thou/uL (1.40-6.50); %Basophils 1.8 % (0.0-1.0); %Eosinophils 0.4 % (0.0-10.0); %Monocytes 6.9 % (0.0-10.0); %Neutrophils 72.9 % (42.0-75.0); Hemoglobin 8.7 g/dL (12.0-16.0); Mean Corpuscular HGB CONC 34.4 g/dL (32.0-36.0); Mean Corpuscular Hemoglobin 32.7 pg (27.0-31.0); Platelet Count 210 thou/uL (130-400); RBC Distribution Width 12.7 % (11.5-14.5); Red Blood Cell (RBC) Count 2.65 mill/uL (4.20-5.40); White Blood Cell (WBC) Count 3.2 thou/uL (4.8-10.8)
[2021-04-01 10:21] LABS: Anion Gap 14 mmol/L (10-20); BUN (Urea Nitrogen) 23 mg/dL (9.8-20.1); Calc. Creatinine Clearance 44 mL/min (70-130); Calcium 8.4 mg/dL (7.8-10.44); Carbon Dioxide 22 mmol/L (23-31); Chloride 100 mmol/L (98-107); Glucose 97 mg/dL (83-110); Potassium 3.7 mmol/L (3.5-5.1); Sodium 132 mmol/L (136-145)
[2021-04-01 12:43] LABS: SARS-CoV-2 PCR by NAA DETECTED (NotDetected)
[2021-04-01] MEDS ORDERED: Sodium Chloride 0.9% 1,000 ML IV SCH (16:00)
[2021-04-02] MEDS: Levothyroxine Sodium 75 MCG TAB PO SCH (05:36)
[2021-04-02] MEDS: Apixaban 5 MG TAB PO SCH ×2 (07:51→20:00)
[2021-04-02] MEDS: Amiodarone 200 MG TAB PO SCH ×2 (07:51→20:00)
[2021-04-02] MEDS: Cholecalciferol 1,000 UNITS (25 MCG) TAB PO SCH (07:51)
[2021-04-02] MEDS: Carvedilol 3.125 MG TAB PO SCH ×2 (07:51→16:50)
[2021-04-02] MEDS: levETIRAcetam 500 MG TAB PO SCH ×2 (07:51→20:00)
[2021-04-02] MEDS: Atorvastatin Calcium 40 MG TAB PO SCH (07:51)
[2021-04-02 09:20] LABS: #Lymphocytes 0.6 thou/uL (1.20-3.40); #Monocytes 0.2 thou/uL (0.11-0.59); #Neutrophils 2.2 thou/uL (1.40-6.50); %Basophils 0.5 % (0.0-1.0); %Eosinophils 0.5 % (0.0-10.0); %Lymphocytes 19.4 % (21.0-51.0); %Monocytes 7.4 % (0.0-10.0); %Neutrophils 72.1 % (42.0-75.0); Hemoglobin 8.3 g/dL (12.0-16.0); Mean Corpuscular HGB CONC 34.7 g/dL (32.0-36.0); Mean Corpuscular Hemoglobin 33.1 pg (27.0-31.0); Mean Corpuscular Volume 95.5 fL (78.0-98.0); Mean Platelet Volume 6.8 fL (7.4-10.4); Platelet Count 218 thou/uL (130-400); Red Blood Cell (RBC) Count 2.51 mill/uL (4.20-5.40)
[2021-04-02 09:40] LABS: Anion Gap 15 mmol/L (10-20); BUN (Urea Nitrogen) 18 mg/dL (9.8-20.1); Calc. Creatinine Clearance 52 mL/min (70-130); Calcium 8.1 mg/dL (7.8-10.44); Carbon Dioxide 19 mmol/L (23-31); Chloride 103 mmol/L (98-107); Glucose 88 mg/dL (83-110); Potassium 3.5 mmol/L (3.5-5.1); Sodium 133 mmol/L (136-145)
[2021-04-02] MEDS: Sodium Chloride 0.9% 1,000 ML IV SCH ×2 (16:51→20:19)
[2021-04-02] MEDS: GUAIFENESIN SF SOLN 200 MG/10 ML UDCUP PO PRN (21:01)
[2021-04-03] MEDS: Levothyroxine Sodium 75 MCG TAB PO SCH (05:31)
[2021-04-03 05:40] LABS: Anion Gap 12 mmol/L (10-20); BUN (Urea Nitrogen) 14 mg/dL (9.8-20.1); Calc. Creatinine Clearance 57 mL/min (70-130); Calcium 8.2 mg/dL (7.8-10.44); Carbon Dioxide 16 mmol/L (23-31); Chloride 108 mmol/L (98-107); Glucose 90 mg/dL (83-110); Potassium 4.4 mmol/L (3.5-5.1); Sodium 132 mmol/L (136-145)
[2021-04-03 05:48] LABS: Band 19 % (5-11); Elliptocytes SLIGHT = 2-5 cells (100X) (0-1/hpf); Hemoglobin 8.6 g/dL (12.0-16.0); Lymphocytes 31 % (21-51); MDiff Complete? YES; Macrocytosis SLIGHT = 6-15 cells (100X) (0-5/hpf); Mean Corpuscular HGB CONC 32.6 g/dL (32.0-36.0); Mean Corpuscular Hemoglobin 32.7 pg (27.0-31.0); Mean Platelet Volume 7.1 fL (7.4-10.4); Monocytes 1 % (0-10); Neutrophil 49 % (42-75); Platelet Count 206 thou/uL (130-400); Platelet Morphology Comment Appears Adequate; RBC Distribution Width 13.2 % (11.5-14.5); Red Blood Cell (RBC) Count 2.63 mill/uL (4.20-5.40); Reflex for Review?? NO; Spherocytes MODERATE= 6-15 cells (100X) (None Seen); White Blood Cell (WBC) Count 3.3 thou/uL (4.8-10.8)
[2021-04-03] MEDS: Carvedilol 3.125 MG TAB PO SCH ×2 (09:28→17:00)
[2021-04-03] MEDS: cefTRIAXone\\ROCEPHIN 1 GM in Sodium Chloride 0.9% 100 ML IVPB SCH (09:31)
[2021-04-03] MEDS: Amiodarone 200 MG TAB PO SCH ×2 (09:31→21:51)
[2021-04-03] MEDS: Apixaban 5 MG TAB PO SCH ×2 (09:32→21:21)
[2021-04-03] MEDS: Atorvastatin Calcium 40 MG TAB PO SCH (09:32)
[2021-04-03] MEDS: Ascorbic Acid 500 mg Chewable Tablet PO SCH (09:32)
[2021-04-03] MEDS: Cholecalciferol 1,000 UNITS (25 MCG) TAB PO SCH (09:34)
[2021-04-03] MEDS: levETIRAcetam 500 MG TAB PO SCH ×2 (09:35→21:22)
[2021-04-03] MEDS: Zinc Sulfate 220 MG CAP PO SCH (09:36)
[2021-04-03] MEDS: Azithromycin 500 MG in Sodium Chloride 0.9% 250 ML 250 ML IVPB SCH (11:59)
[2021-04-03] MEDS ORDERED: Acetaminophen/Codeine 30-300mg Tablet PO PRN (12:12)
[2021-04-03] MEDS ORDERED: Dexamethasone 10 MG in Sodium Chloride 0.9% 50 ML IVPB SCH (12:18)
[2021-04-03] MEDS ORDERED: Sodium Chloride 0.9% 500 ML IV SCH (14:00)
[2021-04-03] MEDS ORDERED: Dexamethasone 10 MG/ML VIAL SLOW IVP SCH (14:00)
[2021-04-03] MEDS: GUAIFENESIN SF SOLN 200 MG/10 ML UDCUP PO PRN (17:01)
[2021-04-03] MEDS ORDERED: hydrALAZINE 20 MG/ML VIAL SLOW IVP PRN (17:22)
[2021-04-03] MEDS: Benzonatate 100 MG CAP PO PRN (21:22)
[2021-04-03] MEDS: Sodium Chloride 0.9% 1,000 ML IV SCH (21:28)
[2021-04-04] MEDS: GUAIFENESIN SF SOLN 200 MG/10 ML UDCUP PO PRN (03:29)
[2021-04-04] MEDS: Levothyroxine Sodium 75 MCG TAB PO SCH (06:12)
[2021-04-04] MEDS: Benzonatate 100 MG CAP PO PRN (06:12)
[2021-04-04] MEDS: Atorvastatin Calcium 40 MG TAB PO SCH (08:44)
[2021-04-04] MEDS: Apixaban 5 MG TAB PO SCH (08:44)
[2021-04-04] MEDS: Amiodarone 200 MG TAB PO SCH (08:45)
[2021-04-04] MEDS: Ascorbic Acid 500 mg Chewable Tablet PO SCH (08:45)
[2021-04-04] MEDS: levETIRAcetam 500 MG TAB PO SCH (08:45)
[2021-04-04] MEDS: Carvedilol 3.125 MG TAB PO SCH (08:45)
[2021-04-04] MEDS: Cholecalciferol 1,000 UNITS (25 MCG) TAB PO SCH (08:45)
[2021-04-04] MEDS: Zinc Sulfate 220 MG CAP PO SCH (08:46)
[2021-04-04] MEDS: cefTRIAXone\\ROCEPHIN 1 GM in Sodium Chloride 0.9% 100 ML IVPB SCH (08:46)
[2021-04-04] MEDS ORDERED: Non-Formulary Item 1 EACH (Atorvastatin Calcium [Atorvastatin Calcium] 80 MG Tablet) PO SCH (09:00)
[2021-04-04] MEDS ORDERED: Aspirin 81 mg Enteric Coated Tablet PO SCH (09:00)
[2021-04-04] MEDS: Azithromycin 500 MG in Sodium Chloride 0.9% 250 ML 250 ML IVPB SCH (11:31)
[2021-04-04 13:10] VITALS: BP 177/79; TEMP 97.5
== END 2021-04-04 15:25 | disposition home or self-care (01) | DRG 100 ==
LOC: ERS 11:12 → NEURO 13:33 → 2SW 04-01 19:20 → OBSVTOIN 04-02 15:46
PROVIDERS: ADMIT Internal Medicine; ATTEND Internal Medicine
PROC: 3E0333Z Introduction of Anti-inflammatory into Peripheral Vein, Percutaneous Approach (ICD-10-PCS; principal; 2021-04-03)
PROC: 8E0ZXY6 Isolation (ICD-10-PCS; 2021-04-03)
DX: G40.209 Localization-related (focal) (partial) symptomatic epilepsy and epileptic syndromes with complex partial seizures, not intractable, without status epilepticus (principal); U07.1 COVID-19; S12.000A Unspecified displaced fracture of first cervical vertebra, initial encounter for closed fracture; S12.100A Unspecified displaced fracture of second cervical vertebra, initial encounter for closed fracture; I50.32 Chronic diastolic (congestive) heart failure; N17.9 Acute kidney failure, unspecified; I13.0 Hypertensive heart and chronic kidney disease with heart failure and stage 1 through stage 4 chronic kidney disease, or unspecified chronic kidney disease; I95.1 Orthostatic hypotension; I48.91 Unspecified atrial fibrillation; N18.30 Chronic kidney disease, stage 3 unspecified; I25.10 Atherosclerotic heart disease of native coronary artery without angina pectoris; Z96.653 Presence of artificial knee joint, bilateral; R77.8 Other specified abnormalities of plasma proteins; E03.9 Hypothyroidism, unspecified; E78.5 Hyperlipidemia, unspecified; S00.03XA Contusion of scalp, initial encounter; W18.30XA Fall on same level, unspecified, initial encounter; I08.3 Combined rheumatic disorders of mitral, aortic and tricuspid valves; Z88.8 Allergy status to other drugs, medicaments and biological substances; Z79.899 Other long term (current) drug therapy; Z79.01 Long term (current) use of anticoagulants; Z79.82 Long term (current) use of aspirin; Z98.84 Bariatric surgery status; Z90.710 Acquired absence of both cervix and uterus; Z79.890 Hormone replacement therapy; Z95.810 Presence of automatic (implantable) cardiac defibrillator
CPT/HCPCS: 36415; 70450; 71045; 72125; 80048; 80053; 81001; 82553; 84145; 84443; 84484; 85025; 86140; 87040; 87086; 93005; 93306; 95715; 95819; 95957; J0456; J0696; J1100; J1953; J3490; J7050; U0003; U0005

== ENCOUNTER 2021-04-17 10:36 | Outpatient (CLI) | payer MEDICARE | END 2021-04-17 10:37 | disposition home or self-care (01) | LOC: TBSIIMAG 10:36 | PROVIDERS: ATTEND Neurological Surgery | DX: S12.000A Unspecified displaced fracture of first cervical vertebra, initial encounter for closed fracture (principal) | CPT/HCPCS: 72040 ==

== ENCOUNTER 2021-05-15 14:34 | Outpatient (CLI) | payer MEDICARE | END 2021-05-15 14:35 | disposition home or self-care (01) | LOC: BICRAD 14:34 | PROVIDERS: ATTEND Neurological Surgery | DX: S12.9XXA Fracture of neck, unspecified, initial encounter (principal) | CPT/HCPCS: 72050 ==

== ENCOUNTER 2022-04-16 10:25 | Outpatient (CLI) | payer MEDICARE | END 2022-04-16 10:26 | disposition home or self-care (01) | LOC: BICULT 10:25 | PROVIDERS: ATTEND Internal Medicine Nephrology | DX: N18.4 Chronic kidney disease, stage 4 (severe) (principal); I48.20 Chronic atrial fibrillation, unspecified; Z92.29 Personal history of other drug therapy | CPT/HCPCS: 71046; 76770 ==

== ENCOUNTER 2022-07-01 11:19 | Outpatient (CLI) | payer MEDICARE | END 2022-07-01 11:20 | disposition home or self-care (01) | LOC: LABBT 11:19 | PROVIDERS: ATTEND Internal Medicine Cardiovascular Disease | DX: Z01.812 Encounter for preprocedural laboratory examination (principal); I48.91 Unspecified atrial fibrillation | CPT/HCPCS: 83970 ==

== ENCOUNTER 2022-07-05 07:00 | Day surgery (SDC) | payer MEDICARE ==
[2022-06-30 11:22] VITALS: BMI 38.7
[2022-07-01 12:52] LABS: Mean Corpuscular HGB CONC 33.5 g/dL (32.0-36.0); Mean Corpuscular Hemoglobin 30.1 pg (27.0-33.0); Mean Corpuscular Volume 89.6 fl (81.6-98.3); Mean Platelet Volume 11.3 fl (7.4-10.4); Platelet Count 183 10x3/uL (150-450); RBC Distribution Width 14.4 % (11.5-14.5); Red Blood Cell (RBC) Count 3.66 10x6/uL (3.90-5.03); White Blood Cell (WBC) Count 4.4 10x3/uL (3.5-10.5)
[2022-07-01 12:55] LABS: PTT 33.8 sec (22.0-33.0); Prothrombin Time 10.9 sec (9.5-12.1)
[2022-07-01 13:00] LABS: ALT (SGPT) 15 U/L (8-55); AST (SGOT) 21 U/L (5-34); Albumin 4.2 g/dL (3.4-4.8); Alkaline Phosphatase 66 U/L (40-110); Anion Gap 15 mmol/L (10-20); BUN (Urea Nitrogen) 45 mg/dL (9.8-20.1); Bilirubin, Direct 0.3 mg/dL (0.1-0.3); Bilirubin, Total 0.7 mg/dL (0.2-1.2); Calc. Creatinine Clearance 34 mL/min (70-130); Calcium 8.9 mg/dL (7.8-10.44); Carbon Dioxide 25 mmol/L (23-31); Chloride 99 mmol/L (98-107); Estimated GFR 21; Glucose 95 mg/dL (83-110); Potassium 4.4 mmol/L (3.5-5.1); Protein, Total 6.9 g/dL (5.8-8.1); Sodium 135 mmol/L (136-145)
[2022-07-05] MEDS ORDERED: Heparin 25,000 units/D5W 500 ML ONE (07:09)
[2022-07-05] MEDS ORDERED: Protamine Sulfate 50 MG/5 ML VIAL ONE (07:09)
[2022-07-05] MEDS ORDERED: Heparin 10,000 UNITS/ 10 ML VIAL ONE (07:09)
[2022-07-05] MEDS ORDERED: Isoproterenol 0.2 MG/1 ML AMP ONE (07:53)
[2022-07-05] MEDS ORDERED: Phenylephrine 10 MG/ML VIAL ONE (08:47)
[2022-07-05] MEDS ORDERED: PROPOFOL 200 MG/20 ML VIAL ONE (08:47)
[2022-07-05] MEDS ORDERED: Rocuronium Bromide 10 MG/ML (10ML VIAL) ONE (08:47)
[2022-07-05] MEDS ORDERED: NEOSTIGMINE 3 MG/3 ML SYR 3 MG/3 ML SYRINGE ONE (08:47)
[2022-07-05] MEDS ORDERED: Lidocaine 1% PF 5 ML VIAL ONE (08:47)
[2022-07-05] MEDS ORDERED: GLYCOPYRROLATE/PF 0.2 MG/ML VIAL ONE (08:47)
[2022-07-05] MEDS ORDERED: Ondansetron PF 4 MG/2 ML Vial ONE (08:47)
[2022-07-05] MEDS ORDERED: fentaNYL 50 mcg/mL 1 mL Vial ONE ×3 (11:55→13:44)
== END 2022-07-05 16:35 | disposition home or self-care (01) ==
LOC: SDC 07:00
PROVIDERS: ATTEND Internal Medicine Cardiovascular Disease
PROC: 02583ZZ Destruction of Conduction Mechanism, Percutaneous Approach (ICD-10-PCS; principal; 2022-07-05)
PROC: 02K83ZZ Map Conduction Mechanism, Percutaneous Approach (ICD-10-PCS; 2022-07-05)
PROC: 4A023FZ Measurement of Cardiac Rhythm, Percutaneous Approach (ICD-10-PCS; 2022-07-05)
PROC: 4A0234Z Measurement of Cardiac Electrical Activity, Percutaneous Approach (ICD-10-PCS; 2022-07-05)
DX: I48.0 Paroxysmal atrial fibrillation (principal); I25.10 Atherosclerotic heart disease of native coronary artery without angina pectoris; I13.0 Hypertensive heart and chronic kidney disease with heart failure and stage 1 through stage 4 chronic kidney disease, or unspecified chronic kidney disease; N18.9 Chronic kidney disease, unspecified; I50.22 Chronic systolic (congestive) heart failure; I42.0 Dilated cardiomyopathy; I25.5 Ischemic cardiomyopathy; E03.9 Hypothyroidism, unspecified; E78.5 Hyperlipidemia, unspecified; E66.01 Morbid (severe) obesity due to excess calories; Z68.39 Body mass index [BMI] 39.0-39.9, adult; Z95.810 Presence of automatic (implantable) cardiac defibrillator; Z98.84 Bariatric surgery status; Z87.891 Personal history of nicotine dependence; Z88.5 Allergy status to narcotic agent; Z91.048 Other nonmedicinal substance allergy status; Z79.01 Long term (current) use of anticoagulants; Z79.82 Long term (current) use of aspirin; Z79.890 Hormone replacement therapy; Z79.899 Other long term (current) drug therapy
CPT/HCPCS: 80048; 80076; 85027; 85347 ×2; 85610; 85730; 93005; 93623; 93656; 93657; C1732 ×4; C1759; J3010; 93010; J1644; J2370; J2405; J2704; J2720; J3490

== ENCOUNTER 2022-07-14 13:09 | Inpatient (IN) | payer MEDICARE ==
[2022-07-14] MEDS ORDERED: hydrALAZINE 20 MG/ML VIAL ONE (14:08)
[2022-07-14 14:12] LABS: #Eosinphils 0.2 thou/uL (0.0-0.7); #Lymphocytes 1.1 thou/uL (1.20-3.40); #Monocytes 0.6 thou/uL (0.11-0.59); #Neutrophils 3.2 thou/uL (1.40-6.50); %Basophils 0.1 % (0.0-1.0); %Eosinophils 3.3 % (0.0-10.0); %Lymphocytes 21.2 % (21.0-51.0); %Monocytes 11.2 % (0.0-10.0); %Neutrophils 64.1 % (42.0-75.0); Hemoglobin 10.1 g/dL (12.0-16.0); Mean Corpuscular HGB CONC 31.5 g/dL (32.0-36.0); Mean Corpuscular Hemoglobin 29.9 pg (27.0-31.0); Mean Corpuscular Volume 94.7 fl (78.0-98.0); Mean Platelet Volume 8.3 fL (7.4-10.4); Platelet Count 228 10x3/uL (130-400); RBC Distribution Width 14.4 % (11.5-14.5); Red Blood Cell (RBC) Count 3.39 mill/uL (4.20-5.40)
[2022-07-14 14:32] LABS: ALT (SGPT) 13 U/L (8-55); AST (SGOT) 16 U/L (5-34); Alkaline Phosphatase 65 U/L (40-110); Anion Gap 15 mmol/L (10-20); BUN (Urea Nitrogen) 33 mg/dL (9.8-20.1); Bilirubin, Total 0.7 mg/dL (0.2-1.2); Calc. Creatinine Clearance 0 mL/min (70-130); Calcium 9.2 mg/dL (7.8-10.44); Carbon Dioxide 28 mmol/L (23-31); Chloride 99 mmol/L (98-107); Estimated GFR 26; Glucose 99 mg/dL (83-110); Sodium 138 mmol/L (136-145)
[2022-07-14] MEDS ORDERED: Furosemide 40 MG/4 ML VIAL ONE (14:57)
[2022-07-14 15:01] LABS: CKMB 1.5 ng/mL (0-6.6)
[2022-07-14] MEDS ORDERED: Acetaminophen 325 MG TAB PO PRN (16:53)
[2022-07-14 17:09] LABS: Bacteria/HPF 1+ HPF (None Seen); Bilirubin Negative (Negative); Blood, Urine Negative (Negative); Clarity Turbid (Clear); Glucose, Urine (Dipstick) Normal (Negative); Ketone, Urine Negative (Negative); Leukocyte 500 Leu/uL (Negative); Nitrite Negative (Negative); Protein, Urine (Dipstick) Negative (Neg-Trace); RBC/HPF 0-3 HPF (0-3); Specific Gravity, Urine 1.005 (1.002-1.036); Squamous Epithelial 0-3 HPF (0-3); Urobilinogen Normal mg/dL (Less than 2); WBC/HPF Greater than 50 HPF (0-3); Waxy Cast 0-3 LPF (None Seen); pH, Urine 6.5 (5.0-9.0)
[2022-07-14 18:52] VITALS: BMI 40.2
[2022-07-14 19:07] LABS: Troponin I 0.255 ng/mL (< 0.028)
[2022-07-14 21:03] LABS: Critical Call Chem Troponin I RESULT DECREASING; Troponin I 0.245 ng/mL (< 0.028)
[2022-07-14] MEDS: Apixaban 5 MG TAB PO SCH (21:17)
[2022-07-14] MEDS: levETIRAcetam 500 MG TAB PO SCH (21:17)
[2022-07-14] MEDS: Amiodarone 200 MG TAB PO SCH (21:18)
[2022-07-14] MEDS: Atorvastatin Calcium 40 MG TAB PO SCH (21:18)
[2022-07-15 04:25] LABS: #Eosinphils 0.2 thou/uL (0.0-0.7); #Lymphocytes 1.1 thou/uL (1.20-3.40); #Monocytes 0.6 thou/uL (0.11-0.59); #Neutrophils 2.8 thou/uL (1.40-6.50); %Basophils 0.4 % (0.0-1.0); %Eosinophils 4.3 % (0.0-10.0); %Monocytes 11.9 % (0.0-10.0); %Neutrophils 60.4 % (42.0-75.0); Hemoglobin 10.6 g/dL (12.0-16.0); Mean Corpuscular HGB CONC 33.9 g/dL (32.0-36.0); Mean Corpuscular Hemoglobin 32.6 pg (27.0-31.0); Mean Platelet Volume 8.2 fL (7.4-10.4); Platelet Count 215 10x3/uL (130-400); RBC Distribution Width 14.2 % (11.5-14.5); Red Blood Cell (RBC) Count 3.26 mill/uL (4.20-5.40); White Blood Cell (WBC) Count 4.7 10x3/uL (4.8-10.8)
[2022-07-15 04:58] LABS: Anion Gap 14 mmol/L (10-20); BUN (Urea Nitrogen) 30 mg/dL (9.8-20.1); Calc. Creatinine Clearance 44 mL/min (70-130); Calcium 9.2 mg/dL (7.8-10.44); Carbon Dioxide 30 mmol/L (23-31); Chloride 98 mmol/L (98-107); Estimated GFR 28; Glucose 96 mg/dL (83-110); Potassium 3.7 mmol/L (3.5-5.1); Sodium 138 mmol/L (136-145)
[2022-07-15] MEDS: Furosemide 40 MG/4 ML VIAL SLOW IVP SCH ×2 (05:55→14:17)
[2022-07-15] MEDS: Levothyroxine Sodium 75 MCG TAB PO SCH (05:55)
[2022-07-15] MEDS: Calcitriol 0.25 MCG CAP PO SCH (09:57)
[2022-07-15] MEDS: levETIRAcetam 500 MG TAB PO SCH ×2 (09:57→21:09)
[2022-07-15] MEDS: cefTRIAXone\\ROCEPHIN 1 GM in Sodium Chloride 0.9% 100 ML IVPB SCH (09:57)
[2022-07-15] MEDS: Apixaban 5 MG TAB PO SCH ×2 (09:57→21:09)
[2022-07-15] MEDS: Amiodarone 200 MG TAB PO SCH ×3 (09:57→21:09)
[2022-07-15] MEDS: Aspirin 81 mg Enteric Coated Tablet PO SCH (09:58)
[2022-07-15] MEDS ORDERED: HYDROmorphone 0.5 MG/0.5 ML SYRINGE ONE (12:43)
[2022-07-15] MEDS: Atorvastatin Calcium 40 MG TAB PO SCH (21:09)
[2022-07-16 05:35] LABS: #Basophils 0.1 thou/uL (0.0-0.2); #Eosinphils 0.2 thou/uL (0.0-0.7); #Lymphocytes 1.1 thou/uL (1.20-3.40); #Monocytes 0.6 thou/uL (0.11-0.59); #Neutrophils 2.9 thou/uL (1.40-6.50); %Basophils 1.2 % (0.0-1.0); %Eosinophils 4.3 % (0.0-10.0); %Lymphocytes 22.1 % (21.0-51.0); %Monocytes 12.1 % (0.0-10.0); %Neutrophils 60.3 % (42.0-75.0); Hemoglobin 10.8 g/dL (12.0-16.0); Mean Corpuscular HGB CONC 32.9 g/dL (32.0-36.0); Mean Corpuscular Hemoglobin 31.1 pg (27.0-31.0); Mean Corpuscular Volume 94.7 fl (78.0-98.0); Platelet Count 213 10x3/uL (130-400); RBC Distribution Width 14.1 % (11.5-14.5); Red Blood Cell (RBC) Count 3.47 mill/uL (4.20-5.40); White Blood Cell (WBC) Count 4.8 10x3/uL (4.8-10.8)
[2022-07-16] MEDS: Levothyroxine Sodium 75 MCG TAB PO SCH (05:38)
[2022-07-16 05:52] LABS: ALT (SGPT) 10 U/L (8-55); AST (SGOT) 17 U/L (5-34); Albumin 3.8 g/dL (3.4-4.8); Alkaline Phosphatase 65 U/L (40-110); Anion Gap 16 mmol/L (10-20); BUN (Urea Nitrogen) 32 mg/dL (9.8-20.1); Bilirubin, Total 0.5 mg/dL (0.2-1.2); Calc. Creatinine Clearance 43 mL/min (70-130); Calcium 9.2 mg/dL (7.8-10.44); Carbon Dioxide 27 mmol/L (23-31); Chloride 98 mmol/L (98-107); Estimated GFR 27; Globulin 2.9 g/dL (2.4-3.5); Glucose 100 mg/dL (83-110); Potassium 4.1 mmol/L (3.5-5.1); Protein, Total 6.7 g/dL (5.8-8.1); Sodium 137 mmol/L (136-145)
[2022-07-16] MEDS: Furosemide 40 MG/4 ML VIAL SLOW IVP SCH ×2 (06:12→14:05)
[2022-07-16] MEDS: Calcitriol 0.25 MCG CAP PO SCH (08:56)
[2022-07-16] MEDS: Amiodarone 200 MG TAB PO SCH ×3 (08:56→20:30)
[2022-07-16] MEDS: levETIRAcetam 500 MG TAB PO SCH ×2 (08:56→20:29)
[2022-07-16] MEDS: Aspirin 81 mg Enteric Coated Tablet PO SCH (08:57)
[2022-07-16] MEDS: Apixaban 5 MG TAB PO SCH ×2 (08:57→20:30)
[2022-07-16] MEDS: cefTRIAXone\\ROCEPHIN 1 GM in Sodium Chloride 0.9% 100 ML IVPB SCH (09:56)
[2022-07-16] MEDS ORDERED: Lidocaine 1% PF 5 ML VIAL ONE (11:58)
[2022-07-16] MEDS ORDERED: PROPOFOL 200 MG/20 ML VIAL ONE (11:58)
[2022-07-16] MEDS ORDERED: Furosemide 20 MG/2 ML VIAL SLOW IVP SCH (16:15)
[2022-07-16] MEDS: Atorvastatin Calcium 40 MG TAB PO SCH (20:29)
[2022-07-17 04:55] LABS: #Eosinphils 0.2 thou/uL (0.0-0.7); #Monocytes 0.6 thou/uL (0.11-0.59); #Neutrophils 3.2 thou/uL (1.40-6.50); %Basophils 0.3 % (0.0-1.0); %Eosinophils 3.5 % (0.0-10.0); %Lymphocytes 20.5 % (21.0-51.0); %Monocytes 11.9 % (0.0-10.0); %Neutrophils 63.9 % (42.0-75.0); Hemoglobin 10.6 g/dL (12.0-16.0); Mean Corpuscular HGB CONC 34.3 g/dL (32.0-36.0); Mean Corpuscular Hemoglobin 32.6 pg (27.0-31.0); Mean Corpuscular Volume 95.1 fl (78.0-98.0); Mean Platelet Volume 8.4 fL (7.4-10.4); Platelet Count 200 10x3/uL (130-400); RBC Distribution Width 14.2 % (11.5-14.5); Red Blood Cell (RBC) Count 3.26 mill/uL (4.20-5.40)
[2022-07-17 05:13] LABS: Anion Gap 18 mmol/L (10-20); BUN (Urea Nitrogen) 38 mg/dL (9.8-20.1); Calc. Creatinine Clearance 39 mL/min (70-130); Calcium 9.7 mg/dL (7.8-10.44); Carbon Dioxide 28 mmol/L (23-31); Chloride 96 mmol/L (98-107); Estimated GFR 24; Glucose 96 mg/dL (83-110); Sodium 138 mmol/L (136-145)
[2022-07-17] MEDS: Levothyroxine Sodium 75 MCG TAB PO SCH (05:34)
[2022-07-17] MEDS: Apixaban 5 MG TAB PO SCH (07:57)
[2022-07-17] MEDS: cefTRIAXone\\ROCEPHIN 1 GM in Sodium Chloride 0.9% 100 ML IVPB SCH (07:57)
[2022-07-17] MEDS: Aspirin 81 mg Enteric Coated Tablet PO SCH (07:57)
[2022-07-17] MEDS: Calcitriol 0.25 MCG CAP PO SCH (07:57)
[2022-07-17] MEDS: Amiodarone 200 MG TAB PO SCH (07:57)
[2022-07-17] MEDS: levETIRAcetam 500 MG TAB PO SCH (07:58)
[2022-07-17] MEDS ORDERED: Furosemide 40 MG/4 ML VIAL SLOW IVP SCH (09:00)
[2022-07-17 11:54] VITALS: TEMP 97.6
[2022-07-17 12:29] VITALS: BP 148/88
== END 2022-07-17 13:24 | disposition home or self-care (01) | DRG 280 ==
LOC: ERS 13:09 → 2NO 18:50 → OBSVTOIN 07-16 09:52
PROVIDERS: ADMIT Internal Medicine; ATTEND Internal Medicine
PROC: 5A2204Z Restoration of Cardiac Rhythm, Single (ICD-10-PCS; principal; 2022-07-16)
DX: I48.0 Paroxysmal atrial fibrillation (principal); I50.43 Acute on chronic combined systolic (congestive) and diastolic (congestive) heart failure; I21.A1 Myocardial infarction type 2; J96.01 Acute respiratory failure with hypoxia; I13.0 Hypertensive heart and chronic kidney disease with heart failure and stage 1 through stage 4 chronic kidney disease, or unspecified chronic kidney disease; N18.4 Chronic kidney disease, stage 4 (severe); N17.9 Acute kidney failure, unspecified; I25.5 Ischemic cardiomyopathy; E78.5 Hyperlipidemia, unspecified; E03.9 Hypothyroidism, unspecified; G40.909 Epilepsy, unspecified, not intractable, without status epilepticus; Z96.653 Presence of artificial knee joint, bilateral; I42.0 Dilated cardiomyopathy; E66.01 Morbid (severe) obesity due to excess calories; Z68.39 Body mass index [BMI] 39.0-39.9, adult; Z88.8 Allergy status to other drugs, medicaments and biological substances; Z91.018 Allergy to other foods; Z79.01 Long term (current) use of anticoagulants; Z79.890 Hormone replacement therapy; Z79.82 Long term (current) use of aspirin; Z98.84 Bariatric surgery status; Z90.710 Acquired absence of both cervix and uterus; Z95.810 Presence of automatic (implantable) cardiac defibrillator
CPT/HCPCS: 36415; 71045; 80048; 80053; 81003; 81015; 82553; 83880; 84484; 85025; 92960; 93005; 93010; 93306; 94760; 96374; 96375; 96376; G0378; J0360; J0696; J1170; J1940; J2704; J3490

== ENCOUNTER 2024-11-30 11:17 | Outpatient (CLI) | payer MEDICARE ==
[2024-11-30 11:56] LABS: #Basophils 0.05 10x3/uL (0.0-0.2); #Eosinophils 0.12 10x3/uL (0.0-0.7); #Monocytes 0.53 10x3/uL (0.11-0.59); #Neutrophils 3.15 10x3/uL (1.40-6.50); %Basophils 1.0 % (0.0-1.0); %Eosinophils 2.3 % (0.0-10.0); %Lymphocytes 25.0 % (21.0-51.0); %Monocytes 10.3 % (0.0-10.0); %Neutrophils 61.0 % (42.0-75.0); Hematocrit 34.5 % (36.0-47.0); Hemoglobin 11.7 g/dL (12.0-16.0); Mean Corpuscular Hemoglobin 30.5 pg (27.0-31.0); Mean Corpuscular Volume 90.1 fL (78.0-98.0); Platelet Count 194 10x3/uL (130-400); Red Blood Cell (RBC) Count 3.83 mill/uL (4.20-5.40); White Blood Cell (WBC) Count 5.16 10x3/uL (4.8-10.8)
[2024-11-30 12:08] LABS: Anion Gap 13 mmol/L (10-20); BUN (Urea Nitrogen) 28 mg/dL (9.8-20.1); Calc. Creatinine Clearance 0 mL/min (70-130); Calcium 9.3 mg/dL (7.8-10.44); Carbon Dioxide 25 mmol/L (23-31); Chloride 101 mmol/L (98-107); Glucose 87 mg/dL (83-110); Potassium 3.8 mmol/L (3.5-5.1); Sodium 135 mmol/L (136-145)
[2024-11-30 12:09] LABS: INR-International Normal Ratio 1.7; Prothrombin Time 20.4 sec (12.0-14.7)
[2024-11-30 12:10] LABS: PTT 40.9 sec (22.9-36.1)
== END 2024-11-30 11:18 | disposition home or self-care (01) ==
LOC: LABBT 11:17
PROVIDERS: ATTEND Internal Medicine Cardiovascular Disease
DX: Z01.812 Encounter for preprocedural laboratory examination (principal); I48.20 Chronic atrial fibrillation, unspecified
CPT/HCPCS: 80048; 85025; 85610; 85730

== ENCOUNTER 2024-12-03 06:17 | Day surgery (SDC) | payer MEDICARE ==
[2024-11-30 11:22] VITALS: BMI 34.3
[2024-12-03] MEDS ORDERED: PROPOFOL 20 ML ONE (07:48)
== END 2024-12-03 09:25 | disposition home or self-care (01) ==
LOC: SDC 06:17
PROVIDERS: ATTEND Internal Medicine Cardiovascular Disease
PROC: 5A2204Z Restoration of Cardiac Rhythm, Single (ICD-10-PCS; principal; 2024-12-03)
DX: I48.19 Other persistent atrial fibrillation (principal); I13.0 Hypertensive heart and chronic kidney disease with heart failure and stage 1 through stage 4 chronic kidney disease, or unspecified chronic kidney disease; I50.22 Chronic systolic (congestive) heart failure; N18.9 Chronic kidney disease, unspecified; I25.10 Atherosclerotic heart disease of native coronary artery without angina pectoris; E78.5 Hyperlipidemia, unspecified; E03.9 Hypothyroidism, unspecified; E66.01 Morbid (severe) obesity due to excess calories; Z68.32 Body mass index [BMI] 32.0-32.9, adult; Z95.810 Presence of automatic (implantable) cardiac defibrillator; Z96.652 Presence of left artificial knee joint; Z87.891 Personal history of nicotine dependence; Z98.41 Cataract extraction status, right eye; Z98.42 Cataract extraction status, left eye; Z90.710 Acquired absence of both cervix and uterus; Z98.890 Other specified postprocedural states; Z88.5 Allergy status to narcotic agent; Z91.048 Other nonmedicinal substance allergy status; Z79.890 Hormone replacement therapy; Z79.01 Long term (current) use of anticoagulants; Z79.82 Long term (current) use of aspirin; Z79.899 Other long term (current) drug therapy
CPT/HCPCS: 92960; J2704; 92961